=== PATIENT | male | born 1955 | race African-American/Black ===

== ENCOUNTER 2020-10-30 10:52 | Outpatient (REF) | payer MEDICARE, MEDICAID, SELFPAY ==
--- NOTE | ~2020-10-30 | CT_ITS ---
EXAMINATION: CT CHEST WITHOUT CONTRAST CLINICAL INFORMATION: Pulmonary nodules COMPARISON: Previous chest x-ray most recent August 2019 TECHNIQUE: Multidetector volumetric CT imaging of the chest was done. Axial MIP volume rendering provided. Sagittal and coronal reformatted images were obtained. Exam is limited due to respiratory motion artifact. This CT examination was performed using dose optimization techniques as appropriate, variously including the following: *Automated exposure control *Adjustment of mA and/or kV according to patient size (this includes techniques or standardized protocols for targeted exams where dose is matched to indication/reason for exam; i.e. extremities or head) *Use of iterative reconstruction technique DLP: 306 mGy-cm FINDINGS: LUNGS: There is evidence of emphysema. There is bilateral upper lobe volume loss. There is right upper lobe cicatrization bronchiectasis. There is question of a central right upper lobe nodule measuring approximately 1.2 cm axial image 183 series 5. It is uncertain whether this could be related to crowding of vascular structures.. There are innumerable calcified right upper right middle and right lower lobe nodules. Largest nodule measures 1.1 cm in the right upper lobe axial image 95 series 5. There are innumerable calcified left pulmonary nodules. Largest left pulmonary nodule measures 1.3 x 1 cm in the lingula axial image 227 series 5. No endobronchial or endotracheal lesion is seen. MEDIASTINUM: The visualized thyroid gland is unremarkable. There are no enlarged mediastinal lymph nodes. Evaluation for hilar adenopathy is limited without contrast. The pulmonary arteries are upper normal in size, main pulmonary artery measuring 2.9 cm. The heart does not appear enlarged. There is no pericardial effusion. The thoracic aorta is normal in caliber. PLEURA: There is no pleural effusion. No pleural mass or thickening. AXILLA: No lymphadenopathy. UPPER ABDOMEN: Unremarkable. OSSEOUS STRUCTURES: There are degenerative changes of the spine. CT/CT chest wo con IMPRESSION: Limited exam due to motion artifact and lack of IV contrast. Emphysema. Significant bilateral upper lobe volume loss. Right upper lobe bronchiectasis. Question 1.1 cm central right upper lobe nodule. Follow-up chest CT with IV contrast should be considered. Innumerable bilateral calcified pulmonary nodules suggestive of old granulomatous disease.
== END 2020-10-30 10:53 | disposition home or self-care (01) ==
LOC: HO.CT 10:52
PROVIDERS: Visit Provider Hospitalist
DX: R91.8 Other nonspecific abnormal finding of lung field (principal)
CPT/HCPCS: 71250

== ENCOUNTER 2020-12-06 11:06 | Outpatient (REF) | payer MEDICARE, MEDICAID, SELFPAY | END 2020-12-06 11:07 | disposition home or self-care (01) | LOC: HO.CT 11:06 | PROVIDERS: Visit Provider Hospitalist | DX: Z13.89 Encounter for screening for other disorder (principal) ==

== ENCOUNTER 2022-01-12 17:06 | Emergency (ER) | payer MEDICARE, MEDICAID, SELFPAY ==
--- NOTE | ~2022-01-12 | CT_ITS ---
EXAMINATION: CT HEAD WITHOUT CONTRAST CLINICAL INFORMATION: Seizure. Found on the ground COMPARISON: 10/23/2018 TECHNIQUE: Contiguous axial imaging was performed from the skull base to vertex without intravenous administration of contrast. This CT examination was performed using dose optimization techniques as appropriate, variously including the following: *Automated exposure control *Adjustment of mA and/or kV according to patient size (this includes techniques or standardized protocols for targeted exams where dose is matched to indication/reason for exam; i.e. extremities or head) *Use of iterative reconstruction technique DLP: 1047 mGy-cm FINDINGS: There is extensive motion artifact. The study was repeated but even on the repeated images there is motion artifact that limits the study. No gross intracranial hemorrhage seen. No mass effect or midline shift. There is diffuse enlargement of the ventricular system is similar to the prior study. Again seen are areas of encephalomalacia in the left frontal and bilateral temporal lobes. No evidence of acute large vessel territory ischemia although evaluation is limited. Similar appearance of chronic microvascular white matter ischemic changes. There is so much motion artifact evaluation for skull fracture is significantly limited. No evidence of acute sinusitis. The patient is edentulous. CT/CT head/brain wo con IMPRESSION: Limited study due to extensive motion artifact but no gross acute intracranial abnormality identified. Similar appearance of right greater than left ventriculomegaly. Similar appearance of left frontal and bilateral temporal encephalomalacia.
--- NOTE | ~2022-01-12 | XR_ITS ---
EXAMINATION: XR CHEST CLINICAL INFORMATION: Seizure. COMPARISON: None TECHNIQUE: Frontal view of the chest was obtained. FINDINGS: The lungs are hypoexpanded with patchy opacity in left lung base. The heart size and pulmonary vascularity is normal. No gross bony abnormality seen. XR/XR chest 1V IMPRESSION: Patchy atelectasis or infiltrate left lung base retrocardiac area. Hypoexpanded lungs.
[2022-01-12 17:15] VITALS: BP 114/72; BP 126/68; PULSE 110; PULSE 91; RESP 14; O2SAT 92; O2SAT 99; BMI 20.3
--- NOTE | 2022-01-12 17:24 | ECG_ITS ---
Test Reason : SEIZURE Blood Pressure : / mmHG Vent. Rate : 073 BPM Atrial Rate : 073 BPM P-R Int : 168 ms QRS Dur : 086 ms QT Int : 372 ms P-R-T Axes : 072 023 040 degrees QTc Int : 409 ms Normal sinus rhythm Possible Left atrial enlargement Minimal voltage criteria for LVH, may be normal variant ( Sokolow-Stanton ) Borderline ECG When compared with ECG of 23-OCT-2018 17:51, No significant change was found Referred By: Yaquelin Laboy Electronically Signed By:Ky Newman
--- NOTE | 2022-01-12 17:35 | ED.SEIZURE ---
HPI - Seizure General Chief Complaint: Seizure <JIMMIE Samaniego Last Filed: 01/12/22 20:11> Stated Complaint: seizures <JIMMIE Samaniego Last Filed: 01/12/22 20:11> Time Seen by Provider: 01/12/22 17:15 <JIMMIE Samaniego Last Filed: 01/12/22 20:11> Source: EMS and old records reviewed <JIMMIE Samaniego Last Filed: 01/12/22 20:11> Mode of arrival: EMS <JIMMIE Samaniego Last Filed: 01/12/22 20:11> Limitations: other (Aphasic) <JIMMIE Samaniego Last Filed: 01/12/22 20:11> History of Present Illness HPI Narrative: 66-year-old male with past medical history of CVA, aphasia, dysphagia, seizures on Trileptal and Keppra, anemia, dementia, depression, HTN, heart failure, presenting to ED via EMS 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 Patient was given 2 mg of IM Ativan at SNF without improvement and then additional 2 mg of IM Versed by EMS with seizure resolution. Per nurse at [facility] patient was found on floor ?if lowered himself to the ground. Admits patient missed 2 doses of antiepileptics on the . Denies reported fever, cough, chills <JIMMIE Samaniego Last Filed: 01/12/22 20:11> MD complaint: seizure <JIMMIE Samaniego Last Filed: 01/12/22 20:11> Onset (ago): minute(s) <JIMMIE Samaniego Last Filed: 01/12/22 20:11> Description of Episode: tonic-clonic movement and post-event confusion <JIMMIE Samaniego Last Filed: 01/12/22 20:11> Related Data Home Medications: Previous Rx's Medication Instructions Recorded levofloxacin 750 mg tablet 750 mg PO DAILY 7 Days #7 tab 01/12/22 <JIMMIE Samaniego Last Filed: 01/12/22 20:11> Allergies/Adverse Reactions: Allergies Allergy/AdvReac Type Severity Reaction Status Date / Time No Known Allergies Allergy Unverified 05/03/20 19:13 [No Known Allergies*] <JIMMIE Samaniego - Last Filed: 01/12/22 20:11> Review of Systems Review of Systems: ROS unobtainable due to patient's baseline dementia/aphasia <JIMMIE Samaniego - Last Filed: 01/12/22 20:11> Yes all other systems are reviewed and are negative <JIMMIE Samaniego - Last Filed: 01/12/22 20:11> [facility] Past Medical History Attestation statement: The following information was validated with the patient. <JIMMIE Samaniego - Last Filed: 01/12/22 20:11> Social History Social History: Social History Advance Directives: Yes Advance Directives Information Provided: No Advance Directives on File: No <JIMMIE Samaniego - Last Filed: 01/12/22 20:11> Physical Exam Vital Signs: Vital Signs: Last Vital Signs Temp 98.3 F 01/12/22 21:56 Pulse 79 01/12/22 21:56 Resp 14 01/12/22 21:56 BP 126/68 01/12/22 17:15 Pulse Ox 94 01/12/22 21:56 BMI result Body Mass Index 20.3 <JIMMIE Samaniego - Last Filed: 01/12/22 20:11> Vital Signs: Last Vital Signs Temp 98.3 F 01/12/22 21:56 Pulse 79 01/12/22 21:56 Resp 14 01/12/22 21:56 BP 126/68 01/12/22 17:15 Pulse Ox 94 01/12/22 21:56 BMI result Body Mass Index 20.3 <JIMMIE Maria - Last Filed: 01/12/22 22:01> Const: Other: + postictal. Aphasic at baseline. Does not follow commands at baseline <JIMMIE Samaniego - Last Filed: 01/12/22 20:11> General: cooperative and no acute distress <JIMMIE Samaniego Last Filed: 01/12/22 20:11> Limitations: no limitations <JIMMIE Samaniego - Last Filed: 01/12/22 20:11> HEENT: Head: Yes normal to inspection and Yes atraumatic <JIMMIE Samaniego - Last Filed: 01/12/22 20:11> Ears: hearing grossly normal bilaterally <JIMMIE Samaniego - Last Filed: 01/12/22 20:11> General nose exam: Normal external nose present <JIMMIE Samaniego - Last Filed: 01/12/22 20:11> Face and sinus: Yes normal facial exam <Yaquelin Laboy [place] - Last Filed: 01/12/22 20:11> Eyes: General: appearance normal, both eyes and all related structures <Yaquelin Laboy [place] - Last Filed: 01/12/22 20:11> Pupils: Equal, round and reactive pupils present <JIMMIE Samaniego - Last Filed: 01/12/22 20:11> EOM: EOMs intact bilaterally <JIMMIE Samaniego - Last Filed: 01/12/22 20:11> Neck: Neck: Yes normal visual inspection and Yes no meningeal signs <Yaquelin Laboy [place] - Last Filed: 01/12/22 20:11> Resp: Effort & Inspection: normal respiratory effort and no respiratory distress <Yaquelin Laboy [place] - Last Filed: 01/12/22 20:11> Auscultation: clear to auscultation bilaterally, no rales, no rhonchi and no wheezes <Yaquelin Laboy [place] - Last Filed: 01/12/22 20:11> Cardio: Rate: regular rate <Yaquelin Laboy [facility] Last Filed: 01/12/22 20:11> Heart sounds: S1 normal heart sound present and S2 normal heart sound present <Yaquelin Laboy [facility] Last Filed: 01/12/22 20:11> GI: Inspection: Yes normal to inspection <JIMMIE Samaniego - Last Filed: 01/12/22 20:11> Palpation (GI): Soft to palpation, nontender, no guarding and not rigid <JIMMIE Samaniego - Last Filed: 01/12/22 20:11> Skin: Rashes: no rashes <Yaquelin Laboy PA - Last Filed: 01/12/22 20:11> Wounds: no wounds <JIMMIE Samaniego Last Filed: 01/12/22 20:11> Neuro: Other: Appears mildly postictal/lethargic, but awake/alert. Mentation at baseline <JIMMIE Samaniego Last Filed: 01/12/22 20:11> General: tone normal and no meningeal signs <JIMMIE Samaniego Last Filed: 01/12/22 20:11> Cranial nerves: Yes Equal, round and reactive pupils present <JIMMIE Samaniego Last Filed: 01/12/22 20:11> Extrem: General: Yes normal to inspection and Yes no pedal edema <JIMMIE Samaniego Last Filed: 01/12/22 20:11> Course Course Course Narrative: -1840--no leukocytosis. Lactic acid elevated to 3.9 as expected from seizure activity. Low concern for severe sepsis at this time. Labs otherwise unremarkable XR chest 1V IMPRESSION: Patchy atelectasis or infiltrate left lung base retrocardiac area. Hypoexpanded lungs. >> patient covered with IV Levaquin. Still low suspicion for severe sepsis CT head/brain wo con IMPRESSION: Limited study due to extensive motion artifact but no gross acute intracranial abnormality identified. ? Similar appearance of right greater than left ventriculomegaly. Similar appearance of left frontal and bilateral temporal encephalomalacia. -2100--ED care Transferred to [facility] pending UA, influenza testing, and repeat lactic acid. Anticipate DC back to [facility] <JIMMIE Samaniego Last Filed: 01/12/22 20:11> Reevaluation(s) Reevaluation #1: Urinalysis is negative for infection. Lactic acidosis has normalized. At this time patient is stable for discharge home with antibiotics for pneumonia. He was already given dose of antiepileptics. He is stable for discharge home. Unfortunately transportation is limited this evening and patient will remain in the emergency department until able to be transferred via EMS tomorrow morning. 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 On exam vital signs stable, NAD/nontoxic appearing, mildly postictal/lethargic, aphasic/does not follow commands at baseline. No evidence of trauma. Concern for breakthrough seizure due to medication noncompliance. Will rule out metabolic and infectious etiologies including ICH. Rule out rhabdo Plan: EKG, labs, UA, head CT, CXR, IVF, re-evaluate <JIMMIE Samaniego - Last Filed: 01/12/22 20:11> Differential Diagnosis Differential diagnosis: Likely focal seizure, generalized seizure and epileptic seizure <JIMMIE Saamniego - Last Filed: 01/12/22 20:11> Medical Records Attestation: I reviewed the patient's medical records. <JIMMIE Samaniego - Last Filed: 01/12/22 20:11> Lab Data Attestation: I reviewed the patient's lab results. <JIMMIE Samaniego - Last Filed: 01/12/22 20:11> Result diagrams: : 01/12/22 18:00 01/12/22 18:00 <JIMMIE Samaniego - Last Filed: 01/12/22 20:11> Labs: Lab Results 01/12/22 01/12/22 01/12/22 Range/Units 18:00 18:00 18:00 WBC 6.4 (4.8-10.8) X10*3/uL RBC 5.02 (4.60-5.80) X10*6/uL Hgb 14.8 (14.0-18.0) g/dl Hct 45.3 (42.0-52.0) % MCV 90.2 (80.0-98.0) fL MCH 29.5 (27.0-33.0) pg MCHC 32.7 (31.0-36.0) g/dl RDW 12.0 (11.0-16.0) % Plt Count 206 (160-400) X10*3/uL MPV 10.6 (9.4-12.4) fL Immature Gran % (Auto) 0.2 (0.0-0.4) % Neut % (Auto) 69.2 (45-73) % Lymph % (Auto) 21.2 (20-40) % Mcculloch % (Auto) 7.3 (2-11) % Eos % (Auto) 1.6 (0-4) % Baso % (Auto) 0.5 (0-2) % Lymph # (Auto) 1.4 (1.2-4.9) X10*3/uL M[place]ulloch # (Auto) 0.5 (0.1-1.2) X10*3/uL Eos # (Auto) 0.1 (0.0-0.4) X10*3/uL Baso # (Auto) 0.0 (0.0-0.2) X10*3/uL Abs Immat Gran (auto) 0.01 (0.00-0.03) X10*3/uL Absolute Neuts (auto) 4.5 (2.0-8.3) x10*3/uL Absolute Nucleated RBC 0.000 (0.0-0.012) X10*3/uL Nucleated RBC % (auto) 0.0 (0.0-0.2) /100WBC PT (9.9-13.0) SEC INR (0.9-1.1) Sodium 142 (135-145) mmol/L Potassium 4.2 (3.3-5.1) mmol/L Chloride 107 (96-108) mmol/L Carbon Dioxide 23 (22-29) mmol/L Anion Gap 16 (12-20) BUN 11 (9-16) mg/dL Creatinine 0.88 (0.5-1.4) mg/dL Estim Creat Clear Calc 77.3 Estimated GFR > 60 Random Glucose 90 (60-115) mg/dL Lactic Acid 3.9 H* (0.5-2.0) mmol/L Lactic Acid F/U @ 2Hr (0.5-2.0) mmol/L Calcium 10.1 (8.4-10.2) mg/dL Magnesium 2.0 (1.6-2.6) mg/dL Total Bilirubin 0.6 (0.0-1.0) mg/dL Direct Bilirubin 0.2 (0.0-0.5) mg/dL AST 18 (5-37) U/L ALT 22 (0-40) U/L Alkaline Phosphatase 79 (39-117) U/L Total Creatine Kinase 96 (38-174) U/L Troponin I High Sens (<3.5-35.0) ng/L Total Protein 7.8 (6.5-8.0) g/dL Albumin 3.9 (3.5-5.0) g/dL Lipase 37 (8-78) U/L Urine Color Urine Appearance Urine pH (5.0-8.0) Ur Specific [place] (1.005-1.025) Urine Protein (NEG-TRACE) MG/DL Urine Glucose (UA) (NEG) MG/DL Urine Ketones (NEG) MG/DL Urine Blood (NEG) Urine Nitrite (NEG) Ur Leukocyte Esterase (NEG) COVID-19 (DIPAK) (Negative) COVID-19 Clin Com 01/12/22 01/12/22 01/12/22 Range/Units 18:00 18:00 18:02 WBC (4.8-10.8) X10*3/uL RBC (4.60-5.80) X10*6/uL Hgb (14.0-18.0) g/dl Hct (42.0-52.0) % MCV (80.0-98.0) fL MCH (27.0-33.0) pg MCHC (31.0-36.0) g/dl RDW (11.0-16.0) % Plt Count (160-400) X10*3/uL MPV (9.4-12.4) fL Immature Gran % (Auto) (0.0-0.4) % Neut % (Auto) (45-73) % Lymph % (Auto) (20-40) % Mcculloch % (Auto) (2-11) % Eos % (Auto) (0-4) % Baso % (Auto) (0-2) % Lymph # (Auto) (1.2-4.9) X10*3/uL [place]och # (Auto) (0.1-1.2) X10*3/uL Eos # (Auto) (0.0-0.4) X10*3/uL Baso # (Auto) (0.0-0.2) X10*3/uL Abs Immat Gran (auto) (0.00-0.03) X10*3/uL Absolute Neuts (auto) (2.0-8.3) x10*3/uL Absolute Nucleated RBC (0.0-0.012) X10*3/uL Nucleated RBC % (auto) (0.0-0.2) /100WBC PT 16.7 H (9.9-13.0) SEC INR 1.5 H (0.9-1.1) Sodium (135-145) mmol/L Potassium (3.3-5.1) mmol/L Chloride (96-108) mmol/L Carbon Dioxide (22-29) mmol/L Anion Gap (12-20) BUN (9-16) mg/dL Creatinine (0.5-1.4) mg/dL Estim Creat Clear Calc Estimated GFR Random Glucose (60-115) mg/dL Lactic Acid (0.5-2.0) mmol/L Lactic Acid F/U @ 2Hr (0.5-2.0) mmol/L Calcium (8.4-10.2) mg/dL Magnesium (1.6-2.6) mg/dL Total Bilirubin (0.0-1.0) mg/dL Direct Bilirubin (0.0-0.5) mg/dL AST (5-37) U/L ALT (0-40) U/L Alkaline Phosphatase (39-117) U/L Total Creatine Kinase (38-174) U/L Troponin I High Sens < 3.5 (<3.5-35.0) ng/L Total Protein (6.5-8.0) g/dL Albumin (3.5-5.0) g/dL Lipase (8-78) U/L Urine Color Urine Appearance Urine pH (5.0-8.0) Ur Specific [place] (1.005-1.025) Urine Protein (NEG-TRACE) MG/DL Urine Glucose (UA) (NEG) MG/DL Urine Ketones (NEG) MG/DL Urine Blood (NEG) Urine Nitrite (NEG) Ur Leukocyte Esterase (NEG) COVID-19 (DIPAK) Negative (Negative) COVID-19 Clin Com See Note 01/12/22 01/12/22 Range/Units 21:12 21:12 WBC (4.8-10.8) X10*3/uL RBC (4.60-5.80) X10*6/uL Hgb (14.0-18.0) g/dl Hct (42.0-52.0) % MCV (80.0-98.0) fL MCH (27.0-33.0) pg MCHC (31.0-36.0) g/dl RDW (11.0-16.0) % Plt Count (160-400) X10*3/uL MPV (9.4-12.4) fL Immature Gran % (Auto) (0.0-0.4) % Neut % (Auto) (45-73) % Lymph % (Auto) (20-40) % Mcculloch % (Auto) (2-11) % Eos % (Auto) (0-4) % Baso % (Auto) (0-2) % Lymph # (Auto) (1.2-4.9) X10*3/uL M[place]ulloch # (Auto) (0.1-1.2) X10*3/uL Eos # (Auto) (0.0-0.4) X10*3/uL Baso # (Auto) (0.0-0.2) X10*3/uL Abs Immat Gran (auto) (0.00-0.03) X10*3/uL Absolute Neuts (auto) (2.0-8.3) x10*3/uL Absolute Nucleated RBC (0.0-0.012) X10*3/uL Nucleated RBC % (auto) (0.0-0.2) /100WBC PT (9.9-13.0) SEC INR (0.9-1.1) Sodium (135-145) mmol/L Potassium (3.3-5.1) mmol/L Chloride (96-108) mmol/L Carbon Dioxide (22-29) mmol/L Anion Gap (12-20) BUN (9-16) mg/dL Creatinine (0.5-1.4) mg/dL Estim Creat Clear Calc Estimated GFR Random Glucose (60-115) mg/dL Lactic Acid (0.5-2.0) mmol/L Lactic Acid F/U @ 2Hr 1.3 (0.5-2.0) mmol/L Calcium (8.4-10.2) mg/dL Magnesium (1.6-2.6) mg/dL Total Bilirubin (0.0-1.0) mg/dL Direct Bilirubin (0.0-0.5) mg/dL AST (5-37) U/L ALT (0-40) U/L Alkaline Phosphatase (39-117) U/L Total Creatine Kinase (38-174) U/L Troponin I High Sens (<3.5-35.0) ng/L Total Protein (6.5-8.0) g/dL Albumin (3.5-5.0) g/dL Lipase (8-78) U/L Urine Color YELLOW Urine Appearance CLEAR Urine pH 6.0 (5.0-8.0) Ur Specific [place] >= 1.030 H (1.005-1.025) Urine Protein TRACE (NEG-TRACE) MG/DL Urine Glucose (UA) NEG (NEG) MG/DL Urine Ketones 5 (NEG) MG/DL Urine Blood NEG (NEG) Urine Nitrite NEG (NEG) Ur Leukocyte Esterase NEG (NEG) COVID-19 (DIPAK) (Negative) COVID-19 Clin Com <JIMMIE Samaniego - Last Filed: 01/12/22 20:11> Lab Results 01/12/22 01/12/22 01/12/22 Range/Units 18:00 18:00 18:00 WBC 6.4 (4.8-10.8) X10*3/uL RBC 5.02 (4.60-5.80) X10*6/uL Hgb 14.8 (14.0-18.0) g/dl Hct 45.3 (42.0-52.0) % MCV 90.2 (80.0-98.0) fL MCH 29.5 (27.0-33.0) pg MCHC 32.7 (31.0-36.0) g/dl RDW 12.0 (11.0-16.0) % Plt Count 206 (160-400) X10*3/uL MPV 10.6 (9.4-12.4) fL Immature Gran % (Auto) 0.2 (0.0-0.4) % Neut % (Auto) 69.2 (45-73) % Lymph % (Auto) 21.2 (20-40) % Mcculloch % (Auto) 7.3 (2-11) % Eos % (Auto) 1.6 (0-4) % Baso % (Auto) 0.5 (0-2) % Lymph # (Auto) 1.4 (1.2-4.9) X10*3/uL M[place]ulloch # (Auto) 0.5 (0.1-1.2) X10*3/uL Eos # (Auto) 0.1 (0.0-0.4) X10*3/uL Baso # (Auto) 0.0 (0.0-0.2) X10*3/uL Abs Immat Gran (auto) 0.01 (0.00-0.03) X10*3/uL Absolute Neuts (auto) 4.5 (2.0-8.3) x10*3/uL Absolute Nucleated RBC 0.000 (0.0-0.012) X10*3/uL Nucleated RBC % (auto) 0.0 (0.0-0.2) /100WBC PT (9.9-13.0) SEC INR (0.9-1.1) Sodium 142 (135-145) mmol/L Potassium 4.2 (3.3-5.1) mmol/L Chloride 107 (96-108) mmol/L Carbon Dioxide 23 (22-29) mmol/L Anion Gap 16 (12-20) BUN 11 (9-16) mg/dL Creatinine 0.88 (0.5-1.4) mg/dL Estim Creat Clear Calc 77.3 Estimated GFR > 60 Random Glucose 90 (60-115) mg/dL Lactic Acid 3.9 H* (0.5-2.0) mmol/L Lactic Acid F/U @ 2Hr (0.5-2.0) mmol/L Calcium 10.1 (8.4-10.2) mg/dL Magnesium 2.0 (1.6-2.6) mg/dL Total Bilirubin 0.6 (0.0-1.0) mg/dL Direct Bilirubin 0.2 (0.0-0.5) mg/dL AST 18 (5-37) U/L ALT 22 (0-40) U/L Alkaline Phosphatase 79 (39-117) U/L Total Creatine Kinase 96 (38-174) U/L Troponin I High Sens (<3.5-35.0) ng/L Total Protein 7.8 (6.5-8.0) g/dL Albumin 3.9 (3.5-5.0) g/dL Lipase 37 (8-78) U/L Urine Color Urine Appearance Urine pH (5.0-8.0) Ur Specific [place] (1.005-1.025) Urine Protein (NEG-TRACE) MG/DL Urine Glucose (UA) (NEG) MG/DL Urine Ketones (NEG) MG/DL Urine Blood (NEG) Urine Nitrite (NEG) Ur Leukocyte Esterase (NEG) COVID-19 (DIPAK) (Negative) COVID-19 Clin Com 01/12/22 01/12/22 01/12/22 Range/Units 18:00 18:00 18:02 WBC (4.8-10.8) X10*3/uL RBC (4.60-5.80) X10*6/uL Hgb (14.0-18.0) g/dl Hct (42.0-52.0) % MCV (80.0-98.0) fL MCH (27.0-33.0) pg MCHC (31.0-36.0) g/dl RDW (11.0-16.0) % Plt Count (160-400) X10*3/uL MPV (9.4-12.4) fL Immature Gran % (Auto) (0.0-0.4) % Neut % (Auto) (45-73) % Lymph % (Auto) (20-40) % [place]ulloch % (Auto) (2-11) % Eos % (Auto) (0-4) % Baso % (Auto) (0-2) % Lymph # (Auto) (1.2-4.9) X10*3/uL [place]och # (Auto) (0.1-1.2) X10*3/uL Eos # (Auto) (0.0-0.4) X10*3/uL Baso # (Auto) (0.0-0.2) X10*3/uL Abs Immat Gran (auto) (0.00-0.03) X10*3/uL Absolute Neuts (auto) (2.0-8.3) x10*3/uL Absolute Nucleated RBC (0.0-0.012) X10*3/uL Nucleated RBC % (auto) (0.0-0.2) /100WBC PT 16.7 H (9.9-13.0) SEC INR 1.5 H (0.9-1.1) Sodium (135-145) mmol/L Potassium (3.3-5.1) mmol/L Chloride (96-108) mmol/L Carbon Dioxide (22-29) mmol/L Anion Gap (12-20) BUN (9-16) mg/dL Creatinine (0.5-1.4) mg/dL Estim Creat Clear Calc Estimated GFR Random Glucose (60-115) mg/dL Lactic Acid (0.5-2.0) mmol/L Lactic Acid F/U @ 2Hr (0.5-2.0) mmol/L Calcium (8.4-10.2) mg/dL Magnesium (1.6-2.6) mg/dL Total Bilirubin (0.0-1.0) mg/dL Direct Bilirubin (0.0-0.5) mg/dL AST (5-37) U/L ALT (0-40) U/L Alkaline Phosphatase (39-117) U/L Total Creatine Kinase (38-174) U/L Troponin I High Sens < 3.5 (<3.5-35.0) ng/L Total Protein (6.5-8.0) g/dL Albumin (3.5-5.0) g/dL Lipase (8-78) U/L Urine Color Urine Appearance Urine pH (5.0-8.0) Ur Specific [place] (1.005-1.025) Urine Protein (NEG-TRACE) MG/DL Urine Glucose (UA) (NEG) MG/DL Urine Ketones (NEG) MG/DL Urine Blood (NEG) Urine Nitrite (NEG) Ur Leukocyte Esterase (NEG) COVID-19 (DIPAK) Negative (Negative) COVID-19 Clin Com See Note 01/12/22 01/12/22 Range/Units 21:12 21:12 WBC (4.8-10.8) X10*3/uL RBC (4.60-5.80) X10*6/uL Hgb (14.0-18.0) g/dl Hct (42.0-52.0) % MCV (80.0-98.0) fL MCH (27.0-33.0) pg MCHC (31.0-36.0) g/dl RDW (11.0-16.0) % Plt Count (160-400) X10*3/uL MPV (9.4-12.4) fL Immature Gran % (Auto) (0.0-0.4) % Neut % (Auto) (45-73) % Lymph % (Auto) (20-40) % [place]och % (Auto) (2-11) % Eos % (Auto) (0-4) % Baso % (Auto) (0-2) % Lymph # (Auto) (1.2-4.9) X10*3/uL [place] # (Auto) (0.1-1.2) X10*3/uL Eos # (Auto) (0.0-0.4) X10*3/uL Baso # (Auto) (0.0-0.2) X10*3/uL Abs Immat Gran (auto) (0.00-0.03) X10*3/uL Absolute Neuts (auto) (2.0-8.3) x10*3/uL Absolute Nucleated RBC (0.0-0.012) X10*3/uL Nucleated RBC % (auto) (0.0-0.2) /100WBC PT (9.9-13.0) SEC INR (0.9-1.1) Sodium (135-145) mmol/L Potassium (3.3-5.1) mmol/L Chloride (96-108) mmol/L Carbon Dioxide (22-29) mmol/L Anion Gap (12-20) BUN (9-16) mg/dL Creatinine (0.5-1.4) mg/dL Estim Creat Clear Calc Estimated GFR Random Glucose (60-115) mg/dL Lactic Acid (0.5-2.0) mmol/L Lactic Acid F/U @ 2Hr 1.3 (0.5-2.0) mmol/L Calcium (8.4-10.2) mg/dL Magnesium (1.6-2.6) mg/dL Total Bilirubin (0.0-1.0) mg/dL Direct Bilirubin (0.0-0.5) mg/dL AST (5-37) U/L ALT (0-40) U/L Alkaline Phosphatase (39-117) U/L Total Creatine Kinase (38-174) U/L Troponin I High Sens (<3.5-35.0) ng/L Total Protein (6.5-8.0) g/dL Albumin (3.5-5.0) g/dL Lipase (8-78) U/L Urine Color YELLOW Urine Appearance CLEAR Urine pH 6.0 (5.0-8.0) Ur Specific [place] >= 1.030 H (1.005-1.025) Urine Protein TRACE (NEG-TRACE) MG/DL Urine Glucose (UA) NEG (NEG) MG/DL Urine Ketones 5 (NEG) MG/DL Urine Blood NEG (NEG) Urine Nitrite NEG (NEG) Ur Leukocyte Esterase NEG (NEG) COVID-19 (DIPAK) (Negative) COVID-19 Clin Com <JIMMIE Maria - Last Filed: 01/12/22 22:01> Discharge Plan Discharge Clinical Impression: Generalized seizure, Pneumonia <JIMMIE Samaniego - Last Filed: 01/12/22 20:11> Patient Disposition: Still a Patient <JIMMIE Samaniego Last Filed: 01/12/22 20:11> Instructions: Recurrent Seizures in Adults (ED), Pneumonia (ED) <JIMMIE Samaniego - Last Filed: 01/12/22 20:11> Additional Instructions: You have pneumonia, your given a dose of IV Levaquin in the emergency department. Please continue taking antibiotic once daily as prescribed. Her head CT was unremarkable. Her other blood work was reassuring. Please follow-up with her doctor. Please take your medications. <JIMMIE Samaniego - Last Filed: 01/12/22 20:11> Prescriptions: New levofloxacin 750 mg tablet 750 mg PO DAILY 7 Days Qty: 7 0RF <JIMMIE Samaniego Last Filed: 01/12/22 20:11> Referrals: Bran Mobley DO [Primary Care Provider] - <JIMMIE Samaniego - Last Filed: 01/12/22 20:11>
[2022-01-12 18:07] LABS: MANUAL DIFF FLAG NO
[2022-01-12 18:10] LABS: Basophils Percent Auto 0.5 % (0-2); Eosinophils Absolute Auto 0.1 X10*3/uL (0.0-0.4); Eosinophils Percent Auto 1.6 % (0-4); Hematocrit 45.3 % (42.0-52.0); Hemoglobin 14.8 g/dl (14.0-18.0); Imm Gran Abs Auto 0.01 X10*3/uL (0.00-0.03); Imm Gran Pct Auto 0.2 % (0.0-0.4); Lymphocytes Absolute Auto 1.4 X10*3/uL (1.2-4.9); Lymphocytes Percent Auto 21.2 % (20-40); Mean Corpuscular HGB Conc 32.7 g/dl (31.0-36.0); Mean Corpuscular Hemoglobin 29.5 pg (27.0-33.0); Mean Corpuscular Volume 90.2 fL (80.0-98.0); Mean Platelet Volume 10.6 fL (9.4-12.4); Monocytes Absolute Auto 0.5 X10*3/uL (0.1-1.2); Monocytes Percent Auto 7.3 % (2-11); Neutrophils Absolute Auto 4.5 x10*3/uL (2.0-8.3); Neutrophils Percent Auto 69.2 % (45-73); Platelet Count 206 X10*3/uL (160-400); Red Blood Count 5.02 X10*6/uL (4.60-5.80); White Blood Count 6.4 X10*3/uL (4.8-10.8)
[2022-01-12] MEDS: 0.9 % Sodium Chloride 1,000 ML 999 ML IV (18:10)
[2022-01-12 18:16] LABS: INTERNATIONAL NORM RATIO 1.5 (0.9-1.1); Prothrombin Time 16.7 SEC (9.9-13.0)
[2022-01-12 18:28] LABS: COVID-19 Test Negative (Negative); IDNOW Serial# 9DB6401D
[2022-01-12 18:28] LABS: Alanine Aminotransferase 22 U/L (0-40); Albumin Level 3.9 g/dL (3.5-5.0); Alkaline Phosphatase 79 U/L (39-117); Anion Gap 16 (12-20); Aspartate Amino Transferase 18 U/L (5-37); Bilirubin Direct 0.2 mg/dL (0.0-0.5); Bilirubin Total 0.6 mg/dL (0.0-1.0); Blood Urea Nitrogen 11 mg/dL (9-16); Calcium 10.1 mg/dL (8.4-10.2); Carbon Dioxide 23 mmol/L (22-29); Chloride 107 mmol/L (96-108); Creatinine Clr Calc Pharmacy 77.3; Estimated Glomerular Filt Rate > 60; Glucose Random 90 mg/dL (60-115); Lipase 37 U/L (8-78); Potassium 4.2 mmol/L (3.3-5.1); Sodium 142 mmol/L (135-145); Total Protein 7.8 g/dL (6.5-8.0)
[2022-01-12 18:30] LABS: Troponin-I High Sensitivity < 3.5 ng/L (<3.5-35.0)
[2022-01-12 18:34] LABS: Lactic Acid 3.9 mmol/L (0.5-2.0)
[2022-01-12] MEDS: levoFLOXacin/D5W 750 MG/150 ML PIGGYBACK 100 MG IV (18:45)
[2022-01-12 20:06] LABS: Reflex Lactate? Lactic Acid Added
[2022-01-12] MEDS: levETIRAcetam 500 MG TABLET 750 MG PO (20:21)
[2022-01-12] MEDS: OXcarbazepine 150 MG TABLET PO (20:21)
[2022-01-12 21:21] LABS: Appearance Urine CLEAR; Color Urine YELLOW; Glucose Urine UA NEG (NEG); Leukocyte Esterase Urine NEG (NEG); Nitrite Urine NEG (NEG); Specific Gravity - Urine >= 1.030 (1.005-1.025); Urine Blood NEG (NEG); Urine Ketones 5 MG/DL (NEG); Urine Protein TRACE MG/DL (NEG-TRACE)
[2022-01-12 21:56] VITALS: PULSE 79; RESP 14; TEMP 36.8; O2SAT 94
[2022-01-12 21:57] LABS: ~Lactic Acid-LAB USE ONLY 1.3 mmol/L (0.5-2.0)
[2022-01-13 03:32] VITALS: BP 132/82; PULSE 73; RESP 14; O2SAT 95
[2022-01-13 05:52] VITALS: BP 129/75; PULSE 79; RESP 14; O2SAT 98
--- NOTE | 2022-01-13 06:37 | PC.NURSE ---
Asked Dr. De Oliveira about blood works that was pending and he said that since the pt was ready for discharge that it wasnt needed. This was done at 0015.
--- NOTE | 2022-01-13 06:41 | PC.NURSE ---
This nurse and a tech attempted to performed VBD per MD orders-patient is combative-unable to redirect patient/perform VBD.
[2022-01-13 06:53] LABS: Influenza A Negative (Negative); Influenza B2 Negative (Negative)
--- NOTE | 2022-01-13 08:05 | PC.NURSE ---
[facility] CALLED TO COME [employer]ISTR[facility] PATIENT WHO IS READY FOR DISCHARGE SPOKE WITH MAYI
--- NOTE | 2022-01-13 09:13 | PC.NURSE ---
[facility] FOR [facility]IENT TO RETURN TO SNF. THIS US SPOKE WITH [facility] WHO STATES THAT THEY DO NOT HAVE TRANSPORT BOOKED. THIS US TRANSFERRED CALL TO [facility] WHO HAD BOOKED TRANSPORT WITH [facility]. [facility] STATES THAT THERE IS NO TRANSPORT AVAILABLE TODAY. THIS US TO BOOK EMS TRANSPORT FOR PATIENT BACK TO SNF.
--- NOTE | 2022-01-13 09:16 | PC.NURSE ---
HAD SPOKEN WITH MAYI FROM [facility] AROUND [phone] WHO STATED THAT THEY WOULD BE ABLE TO PROVIDE TRANSPORTATION. CALLED AGAIN SPOKE WITH [facility], WHO STATED DUE TO THE HOLIDAY THEY CANNOT PROVIDE TRANSPORTATION. [facility] IS BEING SET UP FOR TRANSPORT BACK TO [facility]
== END 2022-01-13 12:52 | disposition home or self-care (01) ==
PROVIDERS: Physician Assistant; Emergency Provider Emergency Medicine Emergency Medical Services; PCP Hospitalist
DX: J18.9 Pneumonia, unspecified organism (principal); R56.9 Unspecified convulsions; Z20.822 Contact with and (suspected) exposure to COVID-19; Z79.899 Other long term (current) drug therapy
CPT/HCPCS: 70450; 71045; 80048; 80076; 81003; 82550; 83605; 83690; 83735; 84484; 85025; 85610; 87040; 87502; 87635; 93005; 96361; 96365; 99284; J1956

== ENCOUNTER 2022-09-20 14:10 | Inpatient (IN) | payer MEDICARE, MEDICAID, SELFPAY ==
--- NOTE | ~2022-09-20 | CT_ITS ---
CT head/brain wo IV con CLINICAL INFORMATION: Reason for Exam s/p seizure COMPARISON: Prior CT scan from December 2021 TECHNIQUE: Department standard protocol. This CT examination was performed using dose optimization techniques as appropriate, variously including the following: *Automated exposure control *Adjustment of mA and/or kV according to patient size (this includes techniques or standardized protocols for targeted exams where dose is matched to indication/reason for exam; i.e. extremities or head) *Use of iterative reconstruction technique DLP: 1398 mGy-cm FINDINGS: CEREBRAL HEMISPHERES: Redemonstration of an area of encephalomalacia likely an old infarct in the left frontoparietal region unchanged from prior CT of [address]. No CT evidence of acute new infarct. No intracranial bleed. BRAIN PARENCHYMA: Normal al-white matter differentiation. SUBDURAL SPACE: No bleed. BASAL GANGLIA AND PINEAL GLAND: Unremarkable VENTRICLES: Bilateral diffuse ventriculomegaly, this has not changed. Ventriculomegaly out of proportion to the degree of brain atrophy and sulci, Cannot rule out NPH. CEREBELLUM AND BRAINSTEM: No space-occupying mass, hemorrhage or acute infarct. CEREBELLOPONTINE ANGLES: No lesion found. ORBITS: No intraorbital mass. VESSELS: Unremarkable SKULL BASE: Unremarkable INCLUDED SINUSES AT SKULL BASE: Clear SKULL AND SKIN: No fracture or bone lesion found. CT/CT head/brain wo IV con IMPRESSION: * No CT evidence of intracranial space-occupying mass, bleed or infarct. * Redemonstration of an area of encephalomalacia likely an old infarct in the left frontoparietal region unchanged. * Diffuse ventriculomegaly out of proportion to the degree of brain atrophy and sulci, raising the possibility of NPH, this has not changed.
--- NOTE | ~2022-09-20 | CT_ITS ---
EXAMINATION: CT CERVICAL SPINE WITHOUT CONTRAST CLINICAL INFORMATION: Seizure. COMPARISON: CT cervical spine 12/23/2017. TECHNIQUE: [employer] images were obtained. CT imaging of the cervical spine was performed without contrast. Data was reformatted into multiplanar images at the acquisition workstation. This CT examination was performed using dose optimization techniques as appropriate, including one or more of the following: Automated exposure control, iterative reconstruction, and adjustment of technique factors (mA and/or kVp) according to patient size (this includes techniques or standardized protocols for targeted exams where dose is matched to indication/reason for exam). Fleischner Society criteria for the followup of incidental pulmonary nodules was implemented if appropriate. DLP: 1398 mGy-cm. FINDINGS: Patient motion degrades image quality therefore the diagnostic accuracy of this examination is limited. Alignment is grossly maintained in the sagittal dimension. Vertebral heights are preserved. No evidence of acute fracture. No abnormal prevertebral soft tissue swelling. Bridging bone fuses the C5 and C6 vertebral segments. There is multilevel degenerative spondylosis of the spine which is superimposed upon underlying congenital canal narrowing causing at least mild canal stenosis at multiple levels. Uncovertebral joint spurring and facet degenerative change causes varying degrees of neuroforaminal encroachment. Soft tissues of the neck are unremarkable. There is pleural parenchymal scarring at the apices of both lungs and a calcified granuloma within the right upper lobe. Heavily calcified atheromatous plaque involves both carotid bifurcations. CT/CT cervical spine wo IV con IMPRESSION: Patient motion degrades image quality therefore the diagnostic accuracy of this examination is limited. Grossly no evidence of acute fracture and no spinal subluxation. There is multilevel degenerative spondylosis of the spine which is superimposed upon congenital canal narrowing causing at least mild canal stenosis at multiple levels. Uncovertebral joint spurring and facet degenerative change causes varying degrees of neuroforaminal encroachment. If there are clinical symptoms of compressive myelopathy then a dedicated cervical spine MRI can be obtained for better anatomic characterization of the cord and canal.
--- NOTE | ~2022-09-20 | XR_ITS ---
EXAMINATION: XR chest 1V CLINICAL INFORMATION: Reason for Exam s/p seizure COMPARISON: 2019 TECHNIQUE: Single portable technique AP Tubes and lines: None Lungs and pleura: Multiple hyperdense calcific densities are projecting over the both hemithorax possibly pleural plaques and/or calcified lung nodules which were detected on CT scan from December 2020. No superimposed infiltrates. Heart and mediastinum: The mediastinum is within normal limits.. Bones/soft tissue: Skeletal structures included are normal for patient's age. XR/XR chest 1V IMPRESSION: * No radiographic evidence of acute infiltrates or failure. * Multiple hyperdense calcific densities projecting over the both hemithorax possibly pleural plaques and/or calcified lung nodules chronic as seen on prior CT of October 2020..
--- NOTE | 2022-09-20 14:27 | ECG_ITS ---
Test Reason : SEIZURE Blood Pressure : / mmHG Vent. Rate : 098 BPM Atrial Rate : 098 BPM P-R Int : 150 ms QRS Dur : 080 ms QT Int : 344 ms P-R-T Axes : 085 024 060 degrees QTc Int : 439 ms Normal sinus rhythm Possible Left atrial enlargement Minimal voltage criteria for LVH, may be normal variant ( Sokolow-Stanton ) Borderline ECG When compared with ECG of 12-JAN-2022 18:24, No significant change was found Referred By: Emily Styles Electronically Signed By:Ky Newman
[2022-09-20 14:30] VITALS: BP 121/66; BP 160/80; PULSE 107; PULSE 120; RESP 17; TEMP 37.1; O2SAT 95; BMI 25.1
--- NOTE | 2022-09-20 14:42 | MHC.EDTECH ---
EKG completed and signed by
--- NOTE | 2022-09-20 14:43 | ED_ITS ---
HPI - Seizure General Chief Complaint: Seizure Stated Complaint: Seizure per EMS Time Seen by Provider: 09/20/22 14:21 Source: EMS, RN notes reviewed and old records reviewed Mode of arrival: EMS Limitations: altered mental status History of Present Illness HPI Narrative: 66-year-old male with past medical history of CVA, aphasia, dysphagia, seizures on Trileptal and Keppra, anemia, dementia, depression, HTN, heart failure, presenting to ED via EMS for tonic clonic seizure activity [facility]. The patient is non-verbal and combative at baseline. Nurse at facility reports at approximately 11:30 am the patient was found in his bed having a tonic clonic seizure that lasted 2 min requiring no Ativan. No postictal symptoms mentioned aside from the patient not eating his l unch. At 1:33 pm the patient was again found in his bed having a tonic clonic seizure. Patient was given 1 mg of IM Ativan without improvement and then 5 min later an additional 1 mg of IM Ativan was given. Seizure lasted a total of 27 minutes. The patient has been refusing his meds intermittently for the past week. He had the flu two weeks ago, the nurse reports he had returned back to baseline. MD complaint: seizure Onset (ago): hour(s) Description of Episode: tonic-clonic movement -: minutes(s) Witnessed: Yes - by Other ([facility] staff) Trauma: No Seizure History: Yes Place: [facility] Facility Possible Precipitating Event: other (Not taking medications for 1 week) Treatments prior to arrival: benzodiazepines (Given IM Ativan prior to arrival) Related Data Previous Rx's Medication Instructions Recorded levofloxacin 750 mg tablet 750 mg PO DAILY 7 days #7 tabs 01/12/22 Allergies Allergy/AdvReac Type Severity Reaction Status Date / Time No Known Allergies Allergy Unverified 05/03/20 19:13 [No Known Allergies*] Review of Systems Review of Systems: unable to obtain Yes Unobtainable due to mental condition (Currently sedated from the Ativan that was given and postictal) Neurologic: Reports confusion Psychiatric: Psychiatric: Reports confusion [facility] Past Medical History Source: old records reviewed and nursing notes reviewed Social History Social History Advance Directives: No Advance Directives Information Provided: No Physical Exam Vital Signs: Vital Signs: Last Vital Signs Temp 97.6 F 09/20/22 16:12 Pulse 66 09/20/22 16:12 Resp 12 09/20/22 16:12 BP 142/91 H 09/20/22 16:12 Pulse Ox 98 09/20/22 16:12 O2 Del Method 09/20/22 16:12 Oxygen Flow Rate 2 09/20/22 14:30 BMI result Body Mass Index 25.1 Vital signs have been reviewed as normal and appeared to be correct. Blood pressure normal. Heart rate 107. Respiration rate normal. Temperature normal. Oxygen saturation normal. Appearance: Postical. Somnolence. Easily arousable. No obvious signs of trauma. Head: Normal external exam. Normocephalic. Atraumatic. Able to rotate head bilaterally. No Recinos signs or raccoon eyes noted. Eyes: Pupils non-reactive to light direct/consensual. No nystagmus noted. Conjunctiva and sclera normal. Eyelids normal. Corneal reflex normal. ENT: EAC normal. TM's Normal. Hearing normal. Pharynx normal. Uvula midline. tongue midline. Moist mucous membranes. No trismus noted. No drooling noted. No muffled voice noted. No nystagmus noted. Neck: Normal inspection. Neck supple. FROM. No adenopathy. Trachea midline. Thyroid Normal. No meningeal signs. No neck mass noted. CVS: Normal heart rate and rhythm. Heart sound normal. No murmurs noted. Pulses normal throughout. Respiratory: No respiratory distress. Painless inspiration. Breath sounds normal. No wheezes/rales/rhonchi noted. Chest nontender. No accessory muscle usage noted or decreased air movement noted. Abdomen: Soft and nontender. Bowel sounds hypoactive in all 4 quadrants. No distention noted. No organomegaly noted. No visible injury noted. Back: No CVA tenderness. Full range of motion noted. Skin: Skin warm and dry. Normal skin color. decrease skin turgor. No rashes/lesions/lacerations noted. Extremities: No lower extremity edema. Extremities exhibit normal range of motion. Extremities nontender. Able to shrug shoulders bilaterally and keep up against resistance. Const: General: confusion Nutritional Appearance: thin Orientation/consciousness: confusion Limitations: altered mental status Neuro: General: confusion Course Course Course Narrative: 14:30pm - 66-year-old male with past medical history of CVA, aphasia, dysphagia, seizures on Trileptal and Keppra, anemia, dementia, depression, HTN, heart failure, presenting to ED via EMS for tonic clonic seizures x 2. [facility] nurse reports, First at 11:30 am lasting 2 minutes. Second at 1:33 pm requiring 2 mg IM Ativan lasting 27 min. No trauma. The patient was in bed. He is Non-verbal, and does not follow commands, and combative at baseline. No evidence of trauma. Most likely cause breakthrough seizure due to one week of medication noncompliance.? Plan: Labs including Keppra and Trileptal level, chest x-ray, CT scan of brain and cervical spine, EKG. Provide a L of IV fluids with 1000 mg of Keppra load ing dose then re-evaluate. Reevaluation(s) Reevaluation #1: Labs reviewed - H&H 13.3/40.2 - UA revealed small leukocytes and this was a straight catch patient has negative nitrates although he may have a UTI therefore will provide IV Rocephin - patient negative for COVID/RSV/flu. - Keppra and Trileptal levels pending. - otherwise all other labs are within normal limits. Imaging CXR XR/XR chest 1V IMPRESSION: ? *? No radiographic evidence of acute infiltrates or failure. ? *? Multiple hyperdense calcific densities projecting over the both hemithorax possibly pleural plaques and/or calcified lung nodules chronic as seen on prior CT of October 2020.. CT scan of brain without contrast CT/CT head/brain wo IV con IMPRESSION: ? *? No CT evidence of intracranial space-occupying mass, bleed or infarct. ? *? Redemonstration of an area of encephalomalacia likely an old infarct in the left frontoparietal region unchanged. ? *? Diffuse ventriculomegaly out of proportion to the degree of brain atrophy and sulci, raising the possibility of NPH, this has not changed. CT scan of cervical spine without contrast CT/CT cervical spine wo IV con IMPRESSION: Patient motion degrades image quality therefore the diagnostic accuracy of this examination is limited. Grossly no evidence of acute fracture and no spinal subluxation. There is multilevel degenerative spondylosis of the spine which is superimposed upon congenital canal narrowing causing at least mild canal stenosis at multiple levels. Uncovertebral joint spurring and facet degenerative change causes varying degrees of neuroforaminal encroachment. If there are clinical symptoms of compressive myelopathy then a dedicated cervical spine MRI can be obtained for better anatomic characterization of the cord and canal. Plan: Therefore I discussed this case with Dr. Mobley and he recommended admitting the patient due to noncompliant with medication recently and having prolonged seizures along with UTI. Time: 16:09 Medications Administered Discontinued Medications Generic Name Dose Route Start Last Admin Trade Name Freq PRN Reason Stop Dose Admin Levetiracetam 1,000 mg in 100 mls @ 400 mls/hr 09/20/22 14:40 09/20/22 16:02 Keppra IV 09/20/22 14:54 400 mls/hr ONCE ONE Administration Sodium Chloride 1,000 mls @ 999 mls/hr 09/20/22 14:45 09/20/22 16:00 Ns IVCONT 09/20/22 15:45 999 mls/hr .Q1H1M [facility] Administration Medical Decision Making Lab Data [facility] Lab Attestation statement: I reviewed the patient's lab results. 09/20/22 15:10 09/20/22 15:10 Labs: Lab Results 09/20/22 09/20/22 09/20/22 Range/Units 15:10 15:10 15:10 WBC 6.9 (4.8-10.8) X10*3/uL RBC 4.57 L (4.60-5.80) X10*6/uL Hgb 13.3 L (14.0-18.0) g/dl Hct 40.2 L (42.0-52.0) % MCV 88.0 (80.0-98.0) fL MCH 29.1 (27.0-33.0) pg MCHC 33.1 (31.0-36.0) g/dl RDW 11.9 (11.0-16.0) % Plt Count 251 (160-400) X10*3/uL MPV 10.8 (9.4-12.4) fL Immature Gran % (Auto) 0.4 (0.0-0.4) % Neut % (Auto) 72.9 (45-73) % Lymph % (Auto) 16.0 L (20-40) % Placer % (Auto) 9.7 (2-11) % Eos % (Auto) 0.7 (0-4) % Baso % (Auto) 0.3 (0-2) % Lymph # (Auto) 1.1 L (1.2-4.9) X10*3/uL Placer # (Auto) 0.7 (0.1-1.2) X10*3/uL Eos # (Auto) 0.1 (0.0-0.4) X10*3/uL Baso # (Auto) 0.0 (0.0-0.2) X10*3/uL Abs Immat Gran (auto) 0.03 (0.00-0.03) X10*3/uL Absolute Neuts (auto) 5.1 (2.0-8.3) x10*3/uL Absolute Nucleated RBC 0.000 (0.0-0.012) X10*3/uL Nucleated RBC % (auto) 0.0 (0.0-0.2) /100WBC PT 16.7 H (10.0-13.1) SEC INR 1.4 H (0.9-1.1) Sodium 140 (135-145) mmol/L Potassium 3.8 (3.3-5.1) mmol/L Chloride 105 (96-108) mmol/L Carbon Dioxide 22 (22-29) mmol/L Anion Gap 17 (12-20) BUN 9 (9-16) mg/dL Creatinine 0.75 (0.5-1.4) mg/dL Estim Creat Clear Calc 92.9 Estimated GFR > 60 Random Glucose 96 (60-115) mg/dL Calcium 9.5 (8.4-10.2) mg/dL Magnesium 1.9 (1.6-2.6) mg/dL Total Bilirubin 0.7 (0.0-1.0) mg/dL AST 13 (5-37) U/L ALT 19 (0-40) U/L Alkaline Phosphatase 86 (39-117) U/L Total Creatine Kinase 63 (38-174) U/L Total Protein 7.0 (6.5-8.0) g/dL Albumin 3.7 (3.5-5.0) g/dL Urine Color Urine Appearance Urine pH (5.0-9.0) Ur Specific Chana (1.005-1.025) Urine Protein (Neg-Trace) mg/dL Urine Glucose (UA) (Negative) mg/dL Urine Ketones (Negative) mg/dL Urine Blood (Negative) Urine Nitrite (Negative) Ur Leukocyte Esterase (Negative) Urine RBC (0-2) /HPF Urine WBC (0-5) /HPF Ur Squamous Epith Cells (0-2) /HPF Urine Bacteria (None Seen) Hyaline Casts (0-2) /LPF Influenza Type A (PCR) (Negative) Influenza Type B (PCR) (Negative) RSV RNA Qual (PCR) (Negative) SARS-CoV-2 RNA (RT-PCR) (Negative) 09/20/22 09/20/22 Range/Units 15:10 15:41 WBC (4.8-10.8) X10*3/uL RBC (4.60-5.80) X10*6/uL Hgb (14.0-18.0) g/dl Hct (42.0-52.0) % MCV (80.0-98.0) fL MCH (27.0-33.0) pg MCHC (31.0-36.0) g/dl RDW (11.0-16.0) % Plt Count (160-400) X10*3/uL MPV (9.4-12.4) fL Immature Gran % (Auto) (0.0-0.4) % Neut % (Auto) (45-73) % Lymph % (Auto) (20-40) % Placer % (Auto) (2-11) % Eos % (Auto) (0-4) % Baso % (Auto) (0-2) % Lymph # (Auto) (1.2-4.9) X10*3/uL Placer # (Auto) (0.1-1.2) X10*3/uL Eos # (Auto) (0.0-0.4) X10*3/uL Baso # (Auto) (0.0-0.2) X10*3/uL Abs Immat Gran (auto) (0.00-0.03) X10*3/uL Absolute Neuts (auto) (2.0-8.3) x10*3/uL Absolute Nucleated RBC (0.0-0.012) X10*3/uL Nucleated RBC % (auto) (0.0-0.2) /100WBC PT (10.0-13.1) SEC INR (0.9-1.1) Sodium (135-145) mmol/L Potassium (3.3-5.1) mmol/L Chloride (96-108) mmol/L Carbon Dioxide (22-29) mmol/L Anion Gap (12-20) BUN (9-16) mg/dL Creatinine (0.5-1.4) mg/dL Estim Creat Clear Calc Estimated GFR Random Glucose (60-115) mg/dL Calcium (8.4-10.2) mg/dL Magnesium (1.6-2.6) mg/dL Total Bilirubin (0.0-1.0) mg/dL AST (5-37) U/L ALT (0-40) U/L Alkaline Phosphatase (39-117) U/L Total Creatine Kinase (38-174) U/L Total Protein (6.5-8.0) g/dL Albumin (3.5-5.0) g/dL Urine Color Yellow Urine Appearance Clear Urine pH 6.5 (5.0-9.0) Ur Specific Chana 1.025 (1.005-1.025) Urine Protein Trace (Neg-Trace) mg/dL Urine Glucose (UA) Negative (Negative) mg/dL Urine Ketones Trace (Negative) mg/dL Urine Blood Negative (Negative) Urine Nitrite Negative (Negative) Ur Leukocyte Esterase Small (1+) H (Negative) Urine RBC 0-2 (0-2) /HPF Urine WBC 11-20 H (0-5) /HPF Ur Squamous Epith Cells 0-2 (0-2) /HPF Urine Bacteria Trace (None Seen) Hyaline Casts 0-2 (0-2) /LPF Influenza Type A (PCR) NEGATIVE (Negative) Influenza Type B (PCR) NEGATIVE (Negative) RSV RNA Qual (PCR) NEGATIVE (Negative) SARS-CoV-2 RNA (RT-PCR) NEGATIVE (Negative) Independent Interpretation I performed an independent interpretation of an: Plain X-Ray and CT Scan Interpretation: FINDINGS: ? CEREBRAL HEMISPHERES: Redemonstration of an area of encephalomalacia likely an old infarct in the left frontoparietal region unchanged from prior CT of [address]. No CT evidence of acute new infarct. No intracranial bleed. BRAIN PARENCHYMA: Normal al-white matter differentiation. SUBDURAL SPACE: No bleed. BASAL GANGLIA AND PINEAL GLAND: Unremarkable VENTRICLES: Bilateral diffuse ventriculomegaly, this has not changed. Ventriculomegaly out of proportion to the degree of brain atrophy and sulci, Cannot rule out NPH. CEREBELLUM AND BRAINSTEM: No space-occupying mass, hemorrhage or acute infarct. CEREBELLOPONTINE ANGLES: No lesion found. ORBITS: No intraorbital mass. VESSELS: Unremarkable SKULL BASE: Unremarkable INCLUDED SINUSES AT SKULL BASE: Clear SKULL AND SKIN: No fracture or bone lesion found. CT/CT head/brain wo IV con IMPRESSION: ? *? No CT evidence of intracranial space-occupying mass, bleed or infarct. ? *? Redemonstration of an area of encephalomalacia likely an old infarct in the left frontoparietal region unchanged. ? *? Diffuse ventriculomegaly out of proportion to the degree of brain atrophy and sulci, raising the possibility of NPH, this has not changed. FINDINGS: Patient motion degrades image quality therefore the diagnostic accuracy of this examination is limited. Alignment is grossly maintained in the sagittal dimension. Vertebral heights are preserved. No evidence of acute fracture. No abnormal prevertebral soft tissue swelling. Bridging bone fuses the C5 and C6 vertebral segments. There is multilevel degenerative spondylosis of the spine which is superimposed upon underlying congenital canal narrowing causing at least mild canal stenosis at multiple levels. Uncovertebral joint spurring and facet degenerative change causes varying degrees of neuroforaminal encroachment. Soft tissues of the neck are unremarkable. There is pleural parenchymal scarring at the apices of both lungs and a calcified granuloma within the right upper lobe. Heavily calcified atheromatous plaque involves both carotid bifurcations.? CT/CT cervical spine wo IV con IMPRESSION: Patient motion degrades image quality therefore the diagnostic accuracy of this examination is limited. Grossly no evidence of acute fracture and no spinal subluxation. There is multilevel degenerative spondylosis of the spine which is superimposed upon congenital canal narrowing causing at least mild canal stenosis at multiple levels. Uncovertebral joint spurring and facet degenerative change causes varying degrees of neuroforaminal encroachment. If there are clinical symptoms of compressive myelopathy then a dedicated cervical spine MRI can be obtained for better anatomic characterization of the cord and canal. ? ? EXAMINATION: XR chest 1V CLINICAL INFORMATION: Reason for Exam s/p seizure COMPARISON: 2019? TECHNIQUE: Single portable technique AP Tubes and lines: None Lungs and pleura: Multiple hyperdense calcific densities are projecting over the both hemithorax possibly pleural plaques and/or calcified lung nodules which were detected on CT scan from December 2020. No superimposed infiltrates. Heart and mediastinum: The mediastinum is within normal limits.. Bones/soft tissue: Skeletal structures included are normal for patient's age. XR/XR chest 1V IMPRESSION: ? *? No radiographic evidence of acute infiltrates or failure. ? *? Multiple hyperdense calcific densities projecting over the both hemithorax possibly pleural plaques and/or calcified lung nodules chronic as seen on prior CT of October 2020.. Radiology Impression Discussion of test interpretation with radiology: I have reviewed the radiologist's reading. External Record Review External record reviewed: Inpatient record, Office record, Outpatient record, Prior outpatient labs, Prior outpatient radiology, Primary care record and Outside ED record Chronic Conditions Patient?s care impacted by: Other (Seizure disorder) Critical Care Time Critical Care Time Critical Care Time: Yes Total Critical Care Time: 60 Attestation: I personally attest to this time spent taking care of the patient Discharge Plan Discharge Clinical Impression: Epileptic seizure, UTI (urinary tract infection) Patient Disposition: Admitted As Inpatient Prescriptions: No Action levofloxacin 750 mg tablet 750 mg PO DAILY 7 Days Qty: 7 0RF
--- NOTE | 2022-09-20 14:51 | MHC.EDTECH ---
Pt linen changed. Pt repositioned. Bed in low, locked position.
[2022-09-20 15:15] LABS: MANUAL DIFF FLAG NO
[2022-09-20 15:21] LABS: Basophils Percent Auto 0.3 % (0-2); Eosinophils Absolute Auto 0.1 X10*3/uL (0.0-0.4); Eosinophils Percent Auto 0.7 % (0-4); Hematocrit 40.2 % (42.0-52.0); Hemoglobin 13.3 g/dl (14.0-18.0); Imm Gran Abs Auto 0.03 X10*3/uL (0.00-0.03); Imm Gran Pct Auto 0.4 % (0.0-0.4); Lymphocytes Absolute Auto 1.1 X10*3/uL (1.2-4.9); Mean Corpuscular HGB Conc 33.1 g/dl (31.0-36.0); Mean Corpuscular Hemoglobin 29.1 pg (27.0-33.0); Mean Platelet Volume 10.8 fL (9.4-12.4); Monocytes Absolute Auto 0.7 X10*3/uL (0.1-1.2); Monocytes Percent Auto 9.7 % (2-11); Neutrophils Absolute Auto 5.1 x10*3/uL (2.0-8.3); Neutrophils Percent Auto 72.9 % (45-73); Platelet Count 251 X10*3/uL (160-400); Red Blood Count 4.57 X10*6/uL (4.60-5.80); Red Cell Distribution Width 11.9 % (11.0-16.0); White Blood Count 6.9 X10*3/uL (4.8-10.8)
[2022-09-20 15:27] LABS: INTERNATIONAL NORM RATIO 1.4 (0.9-1.1); Prothrombin Time 16.7 SEC (10.0-13.1)
[2022-09-20 15:31] LABS: Alanine Aminotransferase 19 U/L (0-40); Albumin Level 3.7 g/dL (3.5-5.0); Alkaline Phosphatase 86 U/L (39-117); Anion Gap 17 (12-20); Aspartate Amino Transferase 13 U/L (5-37); Bilirubin Total 0.7 mg/dL (0.0-1.0); Blood Urea Nitrogen 9 mg/dL (9-16); Calcium 9.5 mg/dL (8.4-10.2); Carbon Dioxide 22 mmol/L (22-29); Chloride 105 mmol/L (96-108); Creatinine Clr Calc Pharmacy 92.9; Estimated Glomerular Filt Rate > 60; Glucose Random 96 mg/dL (60-115); Magnesium 1.9 mg/dL (1.6-2.6); Potassium 3.8 mmol/L (3.3-5.1); Sodium 140 mmol/L (135-145)
[2022-09-20 15:55] LABS: Appearance Urine Clear; Color Urine Yellow; Glucose Urine UA Negative (Negative); Leukocyte Esterase Urine Small (1+) (Negative); Nitrite Urine Negative (Negative); PH 6.5 (5.0-9.0); Specific Gravity - Urine 1.025 (1.005-1.025); UMIC TRIGGER UACC YES; Urine Blood Negative (Negative); Urine Ketones Trace mg/dL (Negative); Urine Protein Trace mg/dL (Neg-Trace)
[2022-09-20 15:59] LABS: Influenza A PCR NEGATIVE (Negative); Influenza B PCR NEGATIVE (Negative); Resp Syncy Virus RNA Qual PCR NEGATIVE (Negative); SARS COV2 PCR INHOUSE NEGATIVE (Negative)
[2022-09-20] MEDS: 0.9 % Sodium Chloride 1,000 ML 999 ML IVCONT (16:00)
[2022-09-20] MEDS: levETIRAcetam in NaCl (iso-os) 1,000 MG/100 ML PIGGYBACK 400 MG IV (16:02)
--- NOTE | 2022-09-20 16:04 | PC.NURSE ---
Patient at baseline non-verbal from [facility]. Patient does not look like he's in pain. patient straight cathed for urine sample per order. IV Placed in left antecubital 20g. tele: sinus rythym 80's Patient has a cough no phlegm comes up.
[2022-09-20 16:12] VITALS: BP 142/91; PULSE 66; RESP 12; TEMP 36.4; O2SAT 98
[2022-09-20 16:29] LABS: Hyaline Casts Urine 0-2 /LPF (0-2); RBC Urine 0-2 /HPF (0-2); Squamous Epithelial Cell Urine 0-2 /HPF (0-2); UACC Culture Trigger YES
[2022-09-20 16:35] LABS: Bacteria Urine Trace (None Seen)
[2022-09-20 17:23] LABS: Lactic Acid 1.3 mmol/L (0.5-2.0)
--- NOTE | 2022-09-20 17:27 | P.HPHOSP_ITS ---
History of Present Illness Date of Service: 09/20/22 Chief Complaint: Refractory seizures 66-year-old male well known to me from [facility] with past medical history of CVA, aphasia, dysphagia, seizures on Trileptal and Keppra with dementia and depression presents to ER via EMS after noted to have a chronic seizure activity at [facility]. Per staff he had a seizure that lasted approximately 2 minutes requiring no Ativan. This happened at 11:30. At 13:30 patient was found in bed having a tonic clonic seizure that lasted 27 minutes and was unresponsive to Ativan 1 mg x 2. Of note patient has been refusing his meds intermittent over the past week to 2 weeks; he has exhibited this behavior in the past and has re quired hospitalization for same. In the emergency room he was given 1000 mg of Keppra IV levels were sent. His urine showed active sediment so he was given empiric ceftriaxone x1 dose. Given the likelihood of recurrent seizure activity without Keppra; he will be admitted for IV Keppra dosing and seizure monitoring Review of Systems Review of Systems: Unable to obtain as patient nonverbal PMFSH Social History Advance Directives: No Advance Directives Information Provided: No Meds Allergies Allergy/AdvReac Type Severity Reaction Status Date / Time No Known Allergies Allergy Unverified 05/03/20 19:13 [No Known Allergies*] Active Medications: Current Medications Acetaminophen (Acetaminophen 325 Mg Tablet) 650 mg PO Q6H PRN PRN Reason: Pain, Mild (Pain Scale 1-3) Enoxaparin Sodium (Enoxaparin Sodium 40 Mg/0.4 Ml Syringe) 40 mg SUBCUT Q24H [facility] Ceftriaxone Sodium 1 gm/ (Sodium Chloride) 50 mls @ 100 mls/hr IV DAILY [facility] Levetiracetam (Keppra) 1,000 mg in 100 mls @ 400 mls/hr IV Q12H [facility] Pharmacy Consult (Consult Rx Perform Med Rec) 1 each MISCELLANE ONCE PRN PRN Reason: Consult order Pharmacy Consult (Consult Rx Perform Med Rec) 1 each MISCELLANE ONCE PRN PRN Reason: Consult order Sodium Chloride (0.9 % Sodium Chloride Flush 3 Ml Syringe) 3 ml IVFLUSH QSHIFT [facility] Physical Exam Vital Signs and Narrative: Vital Signs: Last Vital Signs Temp 97.6 F 09/20/22 16:12 Pulse 66 09/20/22 16:12 Resp 12 09/20/22 16:12 BP 142/91 H 09/20/22 16:12 Pulse Ox 98 09/20/22 16:12 O2 Del Method 09/20/22 16:12 Oxygen Flow Rate 2 09/20/22 14:30 BMI result Body Mass Index 25.1 Const: Other: Awake alert nonverbal. Will track with eyes Resp: Other: Clear to auscultation bilaterally no rales rhonchi or wheezes Cardio: Other: No S4; positive S1-S2; no S3 murmurs rubs or gallops GI: Other: Soft nontender nondistended with normoactive bowel sounds Extrem: Other: No edema Results Labs 09/20/22 15:10 09/20/22 15:10 Labs: Laboratory Results - last 24 hr 09/20/22 09/20/22 09/20/22 15:10 15:10 15:10 MCV 88.0 MCH 29.1 MCHC 33.1 RDW 11.9 Plt Count 251 MPV 10.8 Immature Gran % (Auto) 0.4 Neut % (Auto) 72.9 Lymph % (Auto) 16.0 L [place] % (Auto) 9.7 Eos % (Auto) 0.7 Baso % (Auto) 0.3 Lymph # (Auto) 1.1 L [place] # (Auto) 0.7 Eos # (Auto) 0.1 Baso # (Auto) 0.0 Abs Immat Gran (auto) 0.03 Absolute Neuts (auto) 5.1 Absolute Nucleated RBC 0.000 Nucleated RBC % (auto) 0.0 PT 16.7 H INR 1.4 H Anion Gap 17 Estim Creat Clear Calc 92.9 Estimated GFR > 60 Random Glucose 96 Lactic Acid Calcium 9.5 Magnesium 1.9 Total Bilirubin 0.7 AST 13 ALT 19 Alkaline Phosphatase 86 Total Creatine Kinase 63 Total Protein 7.0 Albumin 3.7 Urine Color Urine Appearance Urine pH Ur Specific [place] Urine Protein Urine Glucose (UA) Urine Ketones Urine Blood Urine Nitrite Ur Leukocyte Esterase Urine RBC Urine WBC Ur Squamous Epith Cells Urine Bacteria Hyaline Casts Influenza Type A (PCR) Influenza Type B (PCR) RSV RNA Qual (PCR) SARS-CoV-2 RNA (RT-PCR) 09/20/22 09/20/22 09/20/22 15:10 15:41 17:09 MCV MCH MCHC RDW Plt Count MPV Immature Gran % (Auto) Neut % (Auto) Lymph % (Auto) [place] % (Auto) Eos % (Auto) Baso % (Auto) Lymph # (Auto) [place] # (Auto) Eos # (Auto) Baso # (Auto) Abs Immat Gran (auto) Absolute Neuts (auto) Absolute Nucleated RBC Nucleated RBC % (auto) PT INR Anion Gap Estim Creat Clear Calc Estimated GFR Random Glucose Lactic Acid 1.3 Calcium Magnesium Total Bilirubin AST ALT Alkaline Phosphatase Total Creatine Kinase Total Protein Albumin Urine Color Yellow Urine Appearance Clear Urine pH 6.5 Ur Specific [place] 1.025 Urine Protein Trace Urine Glucose (UA) Negative Urine Ketones Trace Urine Blood Negative Urine Nitrite Negative Ur Leukocyte Esterase Small (1+) H Urine RBC 0-2 Urine WBC 11-20 H Ur Squamous Epith Cells 0-2 Urine Bacteria Trace Hyaline Casts 0-2 Influenza Type A (PCR) NEGATIVE Influenza Type B (PCR) NEGATIVE RSV RNA Qual (PCR) NEGATIVE SARS-CoV-2 RNA (RT-PCR) NEGATIVE Imaging Radiologist's Impressions: Impressions Chest X-Ray 09/20/22 15:19 IMPRESSION: * No radiographic evidence of acute infiltrates or failure. * Multiple hyperdense calcific densities projecting over the both hemithorax possibly pleural plaques and/or calcified lung nodules chronic as seen on prior CT of October 2020.. Cervical Spine CT 09/20/22 15:48 IMPRESSION: Patient motion degrades image quality therefore the diagnostic accuracy of this examination is limited. Grossly no evidence of acute fracture and no spinal subluxation. There is multilevel degenerative spondylosis of the spine which is superimposed upon congenital canal narrowing causing at least mild canal stenosis at multiple levels. Uncovertebral joint spurring and facet degenerative change causes varying degrees of neuroforaminal encroachment. If there are clinical symptoms of compressive myelopathy then a dedicated cervical spine MRI can be obtained for better anatomic characterization of the cord and canal. Head CT 09/20/22 15:48 IMPRESSION: * No CT evidence of intracranial space-occupying mass, bleed or infarct. * Redemonstration of an area of encephalomalacia likely an old infarct in the left frontoparietal region unchanged. * Diffuse ventriculomegaly out of proportion to the degree of brain atrophy and sulci, raising the possibility of NPH, this has not changed. Assessment and Plan (1) Epileptic seizure: Status: Acute (2) UTI (urinary tract infection): Status: Acute Plan 67-year-old male with a history of CVA aphasia nonverbal on combative at baseline presents after 2 seizures the 2nd being 27 minutes unresponsive to Ativan. Urine also with active sediment 1. Seizures -will continue IV Keppra at a 1000 mg q.12 hours -levels pending -will resume other meds pending med reconciliation 2. Active urinary sediment (UTI) -empiric ceftriaxone -await urine and blood cultures Full code Lovenox Patient will require a 2 midnight inpatient stay for IV Keppra to maintain level secondary to noncompliance with oral therapies. This cannot be achieved a lesser acute setting Time Spent With Patient Time: Total time managing care of this patient today ____ minutes. Quality Stroke Does the patient have a stroke diagnosis?: No VTE Prior VTE?: No VTE Risk Level:: Medical - moderate - high VTE Device Contraindication: Treatment Not Indicated VTE Drug Contraindication: N/A - Med Ordered
--- NOTE | 2022-09-20 18:13 | PHA.MEDREC ---
Pharmacy Consult ? Medication Reconciliation Pharmacy has completed the medication reconciliation. Patient came from [facility] with a medications list. Patient refused all medication this morning. Maureen Peck, PharmD
--- NOTE | 2022-09-20 18:41 | PC.NURSE ---
Patient started grunting went in to room asked him multiple yes or no questions. answered yes to food and that he is cold. Paged Dr. Mobley to put in diet ordered called [facility] will try to bring something.
--- NOTE | 2022-09-20 19:03 | PC.NURSE ---
Per Dr. Mobley just give antibiotics even though 2nd blood culture hasn't been done. Patient on Mechanical soft diet full feed.
[2022-09-20] MEDS: cefTRIAXone sodium 2 GM in 0.9 % Sodium Chloride 50 ML IV (19:20)
[2022-09-20] MEDS: Enoxaparin Sodium 40 MG/0.4 ML SYRINGE SUBCUT (19:25)
[2022-09-20 20:46] VITALS: BP 134/53; PULSE 87; RESP 11; TEMP 37.1; O2SAT 96
--- NOTE | 2022-09-20 21:10 | PC.NURSE ---
Pt refused his night time medications. When I went to administer the medications, pt swung his fist at me and would not open his mouth for the meds. aware.
[2022-09-21 00:25] VITALS: BP 113/54; PULSE 88; RESP 11; TEMP 37.1; O2SAT 94
[2022-09-21] MEDS: levETIRAcetam in NaCl (iso-os) 1,000 MG/100 ML PIGGYBACK 400 MG IV (03:42)
[2022-09-21 06:25] VITALS: BP 130/55; PULSE 88; RESP 12; TEMP 36.9; O2SAT 94
[2022-09-21 09:11] VITALS: BP 146/61; PULSE 75; RESP 14; TEMP 37.1; O2SAT 94
[2022-09-21] MEDS: 0.9 % Sodium Chloride Flush 3 ML SYRINGE IVFLUSH ×2 (09:20→16:16)
[2022-09-21] MEDS: cefTRIAXone sodium 1 GM in 0.9 % Sodium Chloride 50 ML IV (09:20)
--- NOTE | 2022-09-21 09:54 | PM.DS ---
DS: Providers Provider Date of Service: 09/21/22 Date of admission: 09/20/22 17:08 Date of discharge: 09/21/22 Primary care physician: Bran Mobley DO DS: Diagnosis Discharge Diagnosis (1) Epileptic seizure: Status: Acute (2) UTI (urinary tract infection): Status: Acute DS: Summary Hospital Course Hospital Course: 66-year-old male well known to me from [facility] with past medical history of CVA, aphasia, dysphagia, seizures on Trileptal and Keppra with dementia and depression presents to ER via EMS after noted to have a chronic seizure activity at [facility].? Per staff he had a seizure that lasted approximately 2 minutes requiring no Ativan.? This happened at 11:30.? At 13:30 patient was found in bed having a tonic clonic seizure that lasted 27 minutes and was unresponsive to Ativan 1 mg x 2.? Of note patient has been refusing his meds intermittent over the past week to 2 weeks; he has exhibited this behavior in the past and has required hospitalization for same.? In the emergency room he was given 1000 mg of Keppra IV levels were sent.? His urine showed active sediment so he was given empiric ceftriaxone x1 dose.? Given the likelihood of recurrent seizure activity without Keppra; he will be admitted for IV Keppra dosing and seizure monitoring Hospital Course Admitted to [facility]. No further seizure activity noted. Received 2 doses of Keppra IV; level pending. Refused oxcarbazepine (pills crushed in applesauce). .. Takes liquid at [facility]. At this point in time patient will be discharged back to [facility]. . . Believe staff that is familiar with him and that he is familiar with will have better chance to get meds into him. Will continue Ativan p.r.n. seizures Time Spent with Patient Time attestation: Total time managing care of this patient today ____ minutes. Discharge coordination time: Greater than 30 minutes Quality: Safe Use of Opioids Does Pt have an Active Cancer Diagnosis on the Problem List?: No Quality: Stroke Does the patient have a stroke diagnosis?: No Physical Exam Vital Signs: Vital Signs: Last Vital Signs Temp 98.7 F 09/21/22 09:11 Pulse 75 09/21/22 09:11 Resp 14 09/21/22 09:11 BP 146/61 H 09/21/22 09:11 Pulse Ox 94 09/21/22 09:11 O2 Del Method 09/21/22 09:11 Oxygen Flow Rate 2 09/20/22 14:30 BMI result Body Mass Index 25.1 Const: Other: Awake alert nonverbal. Will track with eyes Resp: Other: Clear to auscultation bilaterally no rales rhonchi or wheezes Cardio: Other: No S4; positive S1-S2; no S3 murmurs rubs or gallops GI: Other: Soft nontender nondistended with normoactive bowel sounds Extrem: Other: No edema DS: Data Data Completed and Pending Labs on day of discharge: Laboratory Results - last 24 hr 09/20/22 09/20/22 09/20/22 15:10 15:10 15:10 WBC 6.9 RBC 4.57 L Hgb 13.3 L Hct 40.2 L MCV 88.0 MCH 29.1 MCHC 33.1 RDW 11.9 Plt Count 251 MPV 10.8 Immature Gran % (Auto) 0.4 Neut % (Auto) 72.9 Lymph % (Auto) 16.0 L [place] % (Auto) 9.7 Eos % (Auto) 0.7 Baso % (Auto) 0.3 Lymph # (Auto) 1.1 L [place] # (Auto) 0.7 Eos # (Auto) 0.1 Baso # (Auto) 0.0 Abs Immat Gran (auto) 0.03 Absolute Neuts (auto) 5.1 Absolute Nucleated RBC 0.000 Nucleated RBC % (auto) 0.0 PT 16.7 H INR 1.4 H Sodium 140 Potassium 3.8 Chloride 105 Carbon Dioxide 22 Anion Gap 17 BUN 9 Creatinine 0.75 Estim Creat Clear Calc 92.9 Estimated GFR > 60 Random Glucose 96 Lactic Acid Calcium 9.5 Magnesium 1.9 Total Bilirubin 0.7 AST 13 ALT 19 Alkaline Phosphatase 86 Total Creatine Kinase 63 Total Protein 7.0 Albumin 3.7 Urine Color Urine Appearance Urine pH Ur Specific [place] Urine Protein Urine Glucose (UA) Urine Ketones Urine Blood Urine Nitrite Ur Leukocyte Esterase Urine RBC Urine WBC Ur Squamous Epith Cells Urine Bacteria Hyaline Casts Influenza Type A (PCR) Influenza Type B (PCR) RSV RNA Qual (PCR) SARS-CoV-2 RNA (RT-PCR) 09/20/22 09/20/22 09/20/22 15:10 15:41 17:09 WBC RBC Hgb Hct MCV MCH MCHC RDW Plt Count MPV Immature Gran % (Auto) Neut % (Auto) Lymph % (Auto) [place] % (Auto) Eos % (Auto) Baso % (Auto) Lymph # (Auto) [place] # (Auto) Eos # (Auto) Baso # (Auto) Abs Immat Gran (auto) Absolute Neuts (auto) Absolute Nucleated RBC Nucleated RBC % (auto) PT INR Sodium Potassium Chloride Carbon Dioxide Anion Gap BUN Creatinine Estim Creat Clear Calc Estimated GFR Random Glucose Lactic Acid 1.3 Calcium Magnesium Total Bilirubin AST ALT Alkaline Phosphatase Total Creatine Kinase Total Protein Albumin Urine Color Yellow Urine Appearance Clear Urine pH 6.5 Ur Specific [place] 1.025 Urine Protein Trace Urine Glucose (UA) Negative Urine Ketones Trace Urine Blood Negative Urine Nitrite Negative Ur Leukocyte Esterase Small (1+) H Urine RBC 0-2 Urine WBC 11-20 H Ur Squamous Epith Cells 0-2 Urine Bacteria Trace Hyaline Casts 0-2 Influenza Type A (PCR) NEGATIVE Influenza Type B (PCR) NEGATIVE RSV RNA Qual (PCR) NEGATIVE SARS-CoV-2 RNA (RT-PCR) NEGATIVE Discharge Plan Discharge Patient Disposition: Xfer [facility] Discharge Diagnosis: seizures Referrals: Bran Mobley DO [Primary Care Provider] - 1 Week Discharge Medications: New cefuroxime axetil 500 mg tablet 500 mg PO BID 7 Days Qty: 14 0RF Continued multivitamin Tablet 1 tab PO DAILY atorvastatin 40 mg tablet 1 tab PO DAILY sennosides [senna] 8.6 mg Tablet 8.6 mg PO DAILY PRN (Reason: Constipation) sennosides [senna] 8.6 mg Tablet 8.6 mg PO DAILY acetaminophen 325 mg Tablet 650 mg PO Q4H MDD PAIN OR FEVER PRN (Reason: Pain) lorazepam 2 mg/mL Solution 1 mg IV Q5M PRN (Reason: Seizures) Rx Instructions: until symptoms controlled call MD after 2 doses loperamide 2 mg Tablet 2 mg PO Q6H PRN (Reason: Loose Stool) tamsulosin 0.4 mg Capsule 0.4 mg PO BEDTIME haloperidol decanoate [Haldol Decanoate] 50 mg/mL Solution 12.5 mg IM Q28D folic acid 1 mg Tablet 1 mg PO DAILY oxcarbazepine 300 mg/5 mL (60 mg/mL) Suspension 150 mg PO BID levetiracetam 100 mg/mL solution 750 mg PO BID metoprolol tartrate 25 mg Tablet 25 mg PO BID lactulose 10 gram/15 mL solution 30 ml PO TID Discharge Orders: Discharge Order (Routine); Ordered 09/21/22 Ordered By: Bran Mobley Diet: Advance to usual diet Activity on Discharge: As tolerated Stand Alone Forms: Patient Portal Discharge page Care Plan Goals: Resume all meds as previously taken at [facility]... Encourage compliance with meds were possible Health Concerns: Ceftin 500 mg twice daily for 7 days Plan of Treatment: Resume plan of care as previously at [facility] Assessment: See discharge summary
--- NOTE | 2022-09-21 10:54 | MHC.CM.PN ---
Addendum entered by Shena Kelly 09/21/22 12:26: CM SPOKE TO SHRUTHI AT [facility] [phone] SHE REPORTS ANYTIME IS FINE FOR PTS RETURN SHE IS AWARE TRANSPORT WILL BE REQUESTED FOR 1500 HOURS Original Note: IMM EXPLAINED TO SISTER LESLIE OVER PHONE, WHITE COPY TO BE MAILED, YELLOW COPY TO CHART. PT IS A LTC RESIDENT AT [facility]. PLAN TO RETURN TODAY VIA BLS WHEN DC. PT IS DEPENDENT WITH CARE. HAS BEEN COVID VAX 4 +HCP ON FILE. PCP AT FACILITY DR. ÁVZQUEZ
[2022-09-21 13:47] VITALS: BP 154/72; PULSE 85; RESP 18; O2SAT 95
[2022-09-24 18:54] LABS: Levetiracetam Keppra 2.8 mcg/mL (6.0-46.0); Oxcarbazepine 3.3 mcg/mL (8.0-35.0)
== END 2022-09-21 17:00 | disposition home or self-care (01) | DRG 101 ==
LOC: HO.ED 16:55 → HO.EDOVER 17:14
PROVIDERS: Physician Assistant Medical; Admitting Provider Hospitalist; Emergency Provider Student in an Organized Health Care Education/Training Program; PCP Hospitalist; Visit Provider Hospitalist
DX: G40.909 Epilepsy, unspecified, not intractable, without status epilepticus (principal); N39.0 Urinary tract infection, site not specified; R47.01 Aphasia; F03.90 Unspecified dementia, unspecified severity, without behavioral disturbance, psychotic disturbance, mood disturbance, and anxiety; F32.A Depression, unspecified; R13.10 Dysphagia, unspecified; Z86.73 Personal history of transient ischemic attack (TIA), and cerebral infarction without residual deficits; Z20.822 Contact with and (suspected) exposure to COVID-19; Z79.899 Other long term (current) drug therapy
CPT/HCPCS: 0241U; 36415; 70450; 71045; 72125; 80053; 80177; 80339; 81001; 81003; 82550; 83605; 83735; 85025; 85610; 87040; 87086; 87088; 87147; 87205; 93005; 99285; J0696; J1650; J1953

== ENCOUNTER 2023-04-11 14:48 | Emergency (ER) | payer MEDICARE, MEDICAID, SELFPAY ==
--- NOTE | ~2023-04-11 | CT_ITS ---
EXAMINATION: CT HEAD WITHOUT CONTRAST CLINICAL INFORMATION: Left-sided motor weakness COMPARISON: 09/20/2022 TECHNIQUE: Contiguous axial imaging was performed from the skull base to vertex without intravenous administration of contrast. This CT examination was performed using dose optimization techniques as appropriate, variously including the following: *Automated exposure control *Adjustment of mA and/or kV according to patient size (this includes techniques or standardized protocols for targeted exams where dose is matched to indication/reason for exam; i.e. extremities or head) *Use of iterative reconstruction technique DLP: 671 mGy-cm FINDINGS: There is no evidence of acute intracranial hemorrhage or territorial infarction. No abnormal mass effect or midline shift is seen. Felix to white matter differentiation is well preserved. No extra-axial fluid collections are identified. The ventricles somewhat prominent but similar to baseline. 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 The osseous structures and soft tissues are normal. The mastoid air cells and visualized portions of the paranasal sinuses are well-aerated. CT/CT head/brain wo IV con IMPRESSION: No acute intracranial pathology. Stable ventriculomegaly and chronic changes.
--- NOTE | ~2023-04-11 | US_ITS ---
EXAMINATION: Noninvasive assessment of the left lower extremities with ARTERIAL DUPLEX CLINICAL INFORMATION: Peripheral vascular disease with cool temperature of the left foot, decreased pedal pulses TECHNIQUE: Duplex Doppler techniques with waveform analysis and measurement of velocities in the left common femoral, profunda femoris, superficial femoral, popliteal and tibial arteries were performed. COMPARISON: None FINDINGS: DIRECT DUPLEX DOPPLER FINDINGS: LEFT LEG: Common femoral artery: 95 cm/s, phasicity: Biphasic Profunda femoris artery: 109 cm/s, phasicity: Biphasic Superficial femoral artery (proximal): 28 cm/s, phasicity: Monophasic Superficial femoral artery (mid): Occluded Superficial femoral artery (distal): 14 cm/s, phasicity: Monophasic Popliteal artery: Unable to visualize due to limited patient mobility Posterior tibial artery: 17 cm/s, phasicity: Monophasic Peroneal artery: 7 cm/s, phasicity: Monophasic Anterior tibial artery: 15 cm/s, phasicity: Monophasic Dorsalis pedis artery: 6 cm/s, phasicity: Monophasic US/US arterial duplex LE LT IMPRESSION: Short segment occlusion of the mid superficial femoral artery with reconstituted flow in the distal superficial femoral artery. Markedly dampened velocities and waveforms seen in the below-knee runoff vessels which otherwise appear patent
[2023-04-11 15:01] VITALS: BP 122/73; BP 153/71; PULSE 69; PULSE 70; RESP 16; TEMP 36.3; O2SAT 98; BMI 19.5
--- NOTE | 2023-04-11 15:04 | ECG_ITS ---
Test Reason : WEAKNESS Blood Pressure : / mmHG Vent. Rate : 072 BPM Atrial Rate : 072 BPM P-R Int : 160 ms QRS Dur : 082 ms QT Int : 376 ms P-R-T Axes : 071 059 057 degrees QTc Int : 411 ms Normal sinus rhythm with sinus arrhythmia Minimal voltage criteria for LVH, may be normal variant ( Sokolow-Stanton ) Borderline ECG When compared with ECG of 20-SEP-2022 14:39, No significant change was found Referred By: Kallie Ayala Electronically Signed By:BECKY BACH
[2023-04-11 15:30] VITALS: RESP 16
--- NOTE | 2023-04-11 15:32 | PC.NURSE ---
Pt arrives to ED on stretcher, non verbal at baseline, Left sided weakness. Noted to pull away with left arm however not moving Bilat LE, dragging left foot per facility (pt ambulatory). Pt unable to follow commands, difficult to assess full neuros. Swinging at staff with only right hand, able to redirected at times. VSS. Left LE cool to touch, pulses obtained by Dr Ayala with doppler. Ultrasound being done at this time. EKG obtained. Breathing even/unlabored. Skin normal for ethnicity, dry. NSR on tele.
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
[2023-04-11 16:04] LABS: MANUAL DIFF FLAG NO
[2023-04-11 16:06] LABS: Basophils Percent Auto 0.4 % (0-2); Eosinophils Absolute Auto 0.4 X10*3/uL (0.0-0.4); Hemoglobin 16.1 g/dl (14.0-18.0); Imm Gran Abs Auto 0.01 X10*3/uL (0.00-0.03); Imm Gran Pct Auto 0.1 % (0.0-0.4); Lymphocytes Absolute Auto 2.1 X10*3/uL (1.2-4.9); Lymphocytes Percent Auto 30.5 % (20-40); Mean Corpuscular HGB Conc 32.9 g/dl (31.0-36.0); Mean Corpuscular Hemoglobin 29.5 pg (27.0-33.0); Mean Corpuscular Volume 89.9 fL (80.0-98.0); Mean Platelet Volume 10.4 fL (9.4-12.4); Monocytes Absolute Auto 0.5 X10*3/uL (0.1-1.2); Monocytes Percent Auto 7.5 % (2-11); Neutrophils Absolute Auto 3.9 x10*3/uL (2.0-8.3); Neutrophils Percent Auto 56.5 % (45-73); Platelet Count 217 X10*3/uL (160-400); Red Blood Count 5.45 X10*6/uL (4.60-5.80); Red Cell Distribution Width 11.6 % (11.0-16.0)
[2023-04-11 16:12] LABS: INTERNATIONAL NORM RATIO 1.3 (0.9-1.1); Prothrombin Time 15.9 SEC (11.1-13.3)
[2023-04-11 16:26] LABS: Alanine Aminotransferase 19 U/L (0-40); Albumin Level 4.2 g/dL (3.5-5.0); Alkaline Phosphatase 81 U/L (39-117); Anion Gap 15 (12-20); Aspartate Amino Transferase 25 U/L (5-37); Bilirubin Total 0.4 mg/dL (0.0-1.0); Blood Urea Nitrogen 21 mg/dL (9-16); Calcium 10.9 mg/dL (8.4-10.2); Carbon Dioxide 26 mmol/L (22-29); Chloride 106 mmol/L (96-108); Creatinine Clr Calc Pharmacy 67.1; Estimated Glomerular Filt Rate > 60; Glucose Random 118 mg/dL (60-115); Potassium 4.5 mmol/L (3.3-5.1); Sodium 142 mmol/L (135-145); Total Protein 8.8 g/dL (6.5-8.0)
[2023-04-11 17:05] VITALS: BP 129/62; PULSE 71; RESP 13; O2SAT 97
[2023-04-11 17:13] LABS: Appearance Urine Clear; Color Urine Dark Yellow; Glucose Urine UA Negative (Negative); Leukocyte Esterase Urine Negative (Negative); Nitrite Urine Negative (Negative); PH 5.5 (5.0-9.0); Specific Gravity - Urine >= 1.030 (1.005-1.025); Urine Blood Negative (Negative); Urine Ketones Trace mg/dL (Negative); Urine Protein Trace mg/dL (Neg-Trace)
--- NOTE | 2023-04-11 17:14 | PC.NURSE ---
pt appearing less agressive; pt straight cathed approx 200 mL clear dark yellow urine. PERRLA. pt less interactive with surroundings and this RN. respirations even and unlabored. vss. nsr on monitor on monitor. Dr. jj aware no new orders at this time. awaiting ct scan results.
[2023-04-11 18:07] VITALS: BP 122/61; PULSE 66; RESP 12; TEMP 36.9; O2SAT 97
== END 2023-04-11 18:59 | disposition home or self-care (01) ==
PROVIDERS: Student in an Organized Health Care Education/Training Program; Emergency Provider Emergency Medicine; PCP Hospitalist
DX: R53.1 Weakness (principal); Z79.899 Other long term (current) drug therapy; I73.9 Peripheral vascular disease, unspecified
CPT/HCPCS: 36415; 51701; 70450; 80053; 81003; 85025; 85610; 93005; 93926; 99284

== ENCOUNTER 2023-06-30 11:56 | Outpatient (REF) | payer MEDICARE, MEDICAID, SELFPAY | END 2023-06-30 11:57 | disposition home or self-care (01) | LOC: HO.XRAY 11:56 | PROVIDERS: PCP Hospitalist; Visit Provider Hospitalist | DX: Z13.89 Encounter for screening for other disorder (principal) ==